=== PATIENT | female | born 1945 | race Caucasian/White ===

== ENCOUNTER 2018-01-05 10:12 | Day surgery (SDC) | payer MEDICARE ==
[2018-01-02 16:10] VITALS: BMI 33.6
--- NOTE | 2018-01-05 03:02 | HP ---
HISTORY AND PHYSICAL CHIEF COMPLAINT: Fluid in the right ear and a perforation in the left tympanic membrane. HISTORY OF PRESENT ILLNESS: This patient is a very pleasant 72-year-old female who was recently seen in my office complaining of having a plugged sensation in both ears. The history that the patient gave was that she had recently seen a physician complaining of a plugged sensation in both ears. At that time, she stated that she had an upper respiratory tract infection, however, while at the physician's office, they elected to irrigate her ears out at that time. During the process of irrigation, the patient stated that she experienced a very sharp pain in her left ear while that was being irrigated. In the past, the patient has had tubes placed in ears and was advised to avoid allowing anyone irrigate her ears with any type of solutions. At the time she presented to my office, she was complaining of both ears felt plugged. Clinical examination of the ears revealed that there was an extruded ventilation tube in the right ear with fluid in the right middle ear space and a small recent perforation in the left tympanic membrane. The left middle ear space was dry and free of any infection, fluid, or cholesteatoma. The patient was placed on a course of oral steroids, Decadron and also Floxin and otic drops for a period of approximately 2 weeks. At the time of her return visit, clinical examination revealed that the fluid was still present in the right ear and that the perforation in the left ear had not decreased in size. At that point, it was recommended that the patient undergo a right myringotomy with insertion of a ventilation tube and also at the same time insertion of a left Kartush patch to the left tympanic membrane under IV sedation with MAC. Because the patient has a history of chronic recent renal failure, we advised that we will advise anesthesia to use a use IV fluids with a very low salt content and also to make sure that the amount of IV fluids that she is given is markedly reduced. I spoke with her urology doctor and he advised that the surgery would be okay as long as the amount of fluids that she was given was limited. PAST MEDICAL HISTORY: Past medical history reveals that the patient has: ALLERGIES: TO X-RAY DYE. CURRENT MEDICATIONS: Include 1 baby aspirin daily, pravastatin, Carvedilol, Synthroid, lisinopril, and insulin. REVIEW OF SYSTEMS: Review of systems reveals cardiovascular system is positive for hypertension and ASHD, metabolic endocrine system is positive for hypercholesterolemia and type 1 diabetes mellitus, and hypothyroidism. Urological system is positive for chronic renal failure. The remainder of the review of systems is essentially unremarkable. PHYSICAL EXAMINATION: HEENT: Patient is normocephalic. Examination of right ear reveals right tympanic membrane is dull with evidence of fluid in the right middle ear space. Examination of the left ear reveals a central perforation encompassing approximately 5-10% of the left tympanic membrane. The middle ear ossicles appear to be intact and the middle ear fluid is free of any fluid or infection. Pupils equal, round, react to light and accommodation. Extraocular movements within normal limits. Intranasal examination reveals moderate septal deviation with compensatory hypertrophy of the inferior turbinates. Mild amount of mucus membranes draining down the posterior pharynx. Palpation of the neck, cranial nerves 2 through 12 and the remainder of the head and neck exam are within normal limits. Chest/cardiovascular: Both lung fraga are clear to percussion and auscultation. The patient is in regular sinus rhythm. S1 and S2 are present without evidence of any murmurs, S3s or S4. Peripheral pulses are bilateral and within normal limits. Abdomen: There is no evidence any masses megaly or tenderness. The abdomen is soft. Skin is unremarkable. Musculoskeletal/neurological are within normal limits. Pelvic/rectal examination is deferred at this time because the patient has this done on a regular basis at her family physician's office. The remainder of the physical exam is essentially unremarkable. IMPRESSION: Chronic right serous otitis media with perforation of the left tympanic membrane. PLAN: The patient is scheduled to undergo a right myringotomy with insertion of ventilation tube and insertion of a Kartush patch to the perforation of the left tympanic membrane under IV sedation with MAC. Attention RNs in the pre-surgical area, I have not ordered any pre-surgical prophylactic antibiotics for this patient. If the pharmacy department sends any pre- surgical prophylactic antibiotics to the pre-surgical area for this patient, that order should be cancelled and the medication should be returned to the pharmacy department and make sure that the patient's account is credited appropriately. I have not ordered any pre-surgical medications for this patient. I have discussed the risks, benefits and alternative therapies for the above-mentioned procedure and for both sedation/analgesia as well as necessary blood product administration, if indicated, as they pertain to this patient. The patient has indicated his or her understanding and acceptance of the risks and procedures discussed. MMODL / IJN: [id number] /
[~2018-01-05 10:12] MED LIST: LACTATED RINGERS 1,000 ML IV SCH; Pre Op ABX Message 1 EACH MISC MISCELLANE ONE
[2018-01-05 10:27] LABS: Glucose,Whole Blood 103 mg/dL (75-99)
[2018-01-05] MEDS ORDERED: SODIUM CHLORIDE 0.9% 500 ML IV ONE (10:50)
[2018-01-05] MEDS ORDERED: LIDOCAINE 1% 20 ML VIAL (10MG/ML) FOR IV START INTRADERMA ONE (11:10)
[2018-01-05] MEDS ORDERED: ONDANSETRON 4 MG/2 ML VIAL IVP ONE (11:10)
[2018-01-05] MEDS ORDERED: ePHEDrine SULFATE/0.9% NACL/PF 50 MG/5 ML SYRINGE IV ONE (11:59)
[2018-01-05] MEDS ORDERED: PROPOFOL 10 MG/ML 20 ML VIAL IV ONE (11:59)
[2018-01-05] MEDS ORDERED: fentaNYL (PF) 50 MCG/ML 2 ML AMP ONE (11:59)
[2018-01-05] MEDS ORDERED: MIDAZOLAM 2 MG/2 ML VIAL ONE (11:59)
[2018-01-05] MEDS ORDERED: OFLOXACIN 0.3% OPHTH DROPS 5 ML BOTTLE BOTH EARS ONE (12:08)
[2018-01-05] MEDS ORDERED: OFLOXACIN 0.3% OPHTH DROPS 5 ML BOTTLE RIGHT EAR ONE ×2 (12:08)
[2018-01-05 13:07] VITALS: TEMP 97
[2018-01-05 13:14] LABS: Glucose,Whole Blood 110 mg/dL (75-99)
[2018-01-05 14:09] VITALS: RESP 18
[2018-01-05 14:31] VITALS: BP 118/58; PULSE 86
--- NOTE | 2018-01-07 16:42 | OP ---
OPERATIVE REPORT DATE OF SURGERY: 01/05/2018 PREOPERATIVE DIAGNOSIS: Chronic right serous otitis media with perforation of the left tympanic membrane. POSTOPERATIVE DIAGNOSIS: Chronic right serous otitis media with perforation of the left tympanic membrane. ANESTHESIA: IV sedation with M.A.C. OPERATIVE PROCEDURE: Right myringotomy with insertion of a Overton ventilation tube and insertion of a 3 mm Kartush patch to a left tympanic membrane perforation. SURGEON: Dr. James. COMPLICATIONS: None. ESTIMATED BLOOD LOSS: Zero. OPERATIVE PROCEDURE: The patient was placed on the operating table in supine position. After uneventful induction, an IV sedation satisfactory sedation was obtained. Next the patient's right ear was draped in usual customary fashion. Next, using the Zeiss operating microscope and a #3 aural speculum, the right external auditory canal was cleansed of all wax and debris. It was noted that the right middle ear space was filled with fluid. The central most portion of the tympanic membrane appeared to have a so-called monomeric tympanic membrane, which is to say it was quite thinned out. Therefore, it was elected to make an incision in the superior anterior portion of the right tympanic membrane. Next, the right middle ear space was suctioned free of all fluid and a Overton ventilation tube was inserted through this myringotomy incision without difficulty. Attention was then directed to the left ear with a similar procedure was carried out using the Zeiss operating microscope and a #3 aural speculum to cleanse out the left external auditory canal. Initial inspection did not reveal the perforation. However, it was noted that there appeared to be a very thin layer of tissue overlying and hiding the perforation. This thin piece tissue was carefully grasped with the alligator forceps and was subsequently removed and teased off of the tympanic membrane without causing further enlargement of the perforation. The left middle ear space was free of any fluid, infection or cholesteatoma. It was elected to insert a 3 mm Kartush patch into the perforation. This size Kartush patch covered the perforation nicely and care was taken to make sure that it was well seated. At this point, the procedure was terminated. There were no intraoperative complications. Patient tolerated procedure well and was returned to the recovery room in satisfactory condition. MMODL / IJN: [id number] /
== END 2018-01-05 15:01 | disposition home or self-care (01) ==
LOC: OR 10:12
PROVIDERS: ATTEND Otolaryngology
DX: H65.21 Chronic serous otitis media, right ear (principal); H72.92 Unspecified perforation of tympanic membrane, left ear; I25.2 Old myocardial infarction; I12.9 Hypertensive chronic kidney disease with stage 1 through stage 4 chronic kidney disease, or unspecified chronic kidney disease; N18.4 Chronic kidney disease, stage 4 (severe); K21.9 Gastro-esophageal reflux disease without esophagitis; I25.10 Atherosclerotic heart disease of native coronary artery without angina pectoris; G47.33 Obstructive sleep apnea (adult) (pediatric); E07.9 Disorder of thyroid, unspecified; E11.22 Type 2 diabetes mellitus with diabetic chronic kidney disease; Z79.4 Long term (current) use of insulin; Z79.899 Other long term (current) drug therapy; Z91.041 Radiographic dye allergy status; Z79.82 Long term (current) use of aspirin
CPT/HCPCS: 84132; 69436; 69610; J2250; J2405; J3010; J2704

== ENCOUNTER → 2018-08-16 | Outpatient (CLI) | payer MEDICARE ==
--- NOTE | 2018-08-16 12:15 | XR ---
EXAMINATION TYPE: XR cervical spine limited DATE OF EXAM: 08/16/2018 COMPARISON: NONE HISTORY: Pain TECHNIQUE: Three views are submitted. FINDINGS: The odontoid is intact. There are no compression deformities. The prevertebral soft tissue structur es are within normal limits. Severe degenerative disc disease C5-C6 and C6-C7 with posterior spondyl osis. Calcifications in the soft tissues of the neck likely related atherosclerotic change of the carotid a rteries. Sternotomy wires and cardiac device also noted. IMPRESSION: 1. Severe degenerative disc disease C5-6 and C6-C7 correlate with MRI as clinically warranted. 2. Calcification soft tissue the neck likely related atherosclerotic changes of the carotid arteries. .
== END | disposition home or self-care (01) ==
LOC: RADXRMAIN 11:39
PROVIDERS: ATTEND Otolaryngology
DX: M50.322 Other cervical disc degeneration at C5-C6 level (principal); M79.89 Other specified soft tissue disorders
CPT/HCPCS: 72040

== ENCOUNTER → 2022-02-11 | Outpatient (CLI) | payer MEDICARE ==
--- NOTE | 2022-02-11 12:40 | US ---
EXAMINATION TYPE: US abdomen complete DATE OF EXAM: 02/11/2022 COMPARISON: NONE CLINICAL HISTORY: R10.12 LUQ ABD PAIN. LUQ pain no gallbladder low blood count 7.1.CKD EXAM MEASUREMENTS: Liver Length: 15.3 cm Gallbladder Wall: Surgically absent cm CBD: .7 cm Spleen: 10.7 cm Right Kidney: 9.2 x 4.0 x 3.3 cm Left Kidney: 10.0 x 4.6 x 3.4 cm Limitations due to overlying bowel gas. Pancreas: Tail obscured by overlying bowel gas. Complex area visualized 1.8 x .9 x .9cm. This is non specific. Consider cystadenoma or cystadenocarcinoma. Small pseudocysts or less likely. Liver: Increased attenuation Gallbladder: Surgically absent Evidence for sonographic Zavala's sign: No CBD: wnl Spleen: wnl Right Kidney: Cortical thinning Left Kidney: Cortical thinning Upper IVC: wnl Abd Aorta: wnl IMPRESSION: 1. Complex hypoechoic area within the head of the pancreas. Additional workup is recommended. Differe ntial diagnosis could include cystadenoma or cystadenocarcinoma among other etiologies. Consider nidia tional evaluation with contrast CT with pancreas protocol or contrast MRI. Neoplasm is not excluded t his time.
== END | disposition home or self-care (01) ==
LOC: RADUSWWP 09:31
PROVIDERS: ATTEND Internal Medicine Hematology & Oncology
DX: K86.89 Other specified diseases of pancreas (principal)
CPT/HCPCS: 76700

== ENCOUNTER 2022-07-18 14:14 | Emergency (ER) | payer MEDICARE ==
[2022-07-18 15:16] VITALS: BP 162/65; PULSE 70; RESP 18; TEMP 99.6
[2022-07-18 16:06] LABS: Basophils # (A) 0.1 k/uL (0-0.2); Basophils % (A) 1 %; Eosinophils % (A) 0 %; HGB 11.4 gm/dL (11.4-16.0); Hypochromasia Slight; Lymphocytes # (A) 0.4 k/uL (1.0-4.8); Lymphocytes % (A) 3 %; MCH 28.7 pg (25.0-35.0); MCHC 31.7 g/dL (31.0-37.0); MCV 90.7 fL (80.0-100.0); Mean Platelet Volume 8.1; Monocytes # (A) 0.6 k/uL (0-1.0); Monocytes % (A) 5 %; Neutrophils # (A) 10.3 k/uL (1.3-7.7); Neutrophils % (A) 89 %; Platelet Count 218 k/uL (150-450); RBC 3.97 m/uL (3.80-5.40); RDW 15.7 % (11.5-15.5); WBC 11.5 k/uL (3.8-10.6)
[2022-07-18 16:23] LABS: Albumin 3.7 g/dL (3.5-5.0); Calcium 9.4 mg/dL (8.4-10.2); Potassium 3.7 mmol/L (3.5-5.1); Total Bilirubin 0.8 mg/dL (0.2-1.3); Total Protein 6.5 g/dL (6.3-8.2)
[2022-07-18 16:48] LABS: Appearance,Urine Cloudy (Clear); Bacteria,Urine Many /hpf; Bilirubin,Urine Negative (Negative); Blood,Urine Negative (Negative); Color,Urine Light Yellow; Glucose,Urine (UA) Negative (Negative); Ketones,Urine Negative (Negative); Leukocyte Esterase,Urine Large (Negative); Mucus,Urine Rare /hpf; Nitrite,Urine Negative (Negative); Protein,Urine Trace (Negative); RBC,Urine 1 /hpf (0-5); Specific Gravity,Urine 1.012 (1.001-1.035); Squamous Epithelial Cell,Urine 7 /hpf (0-4); Urobilinogen,Urine <2.0 mg/dL (<2.0); WBC,Urine 82 /hpf (0-5)
== END 2022-07-18 17:18 | disposition left against medical advice (07) ==
LOC: EC 14:14
DX: Z53.21 Procedure and treatment not carried out due to patient leaving prior to being seen by health care provider (principal)
CPT/HCPCS: 36415; 80053; 81001; 82150; 83690; 85025; 87086; 93005; 99499

== ENCOUNTER 2024-11-01 10:04 | Day surgery (SDC) | payer MEDICARE ==
[2024-10-30 15:51] VITALS: BMI 37.2
--- NOTE | 2024-10-31 19:10 | HP ---
HISTORY AND PHYSICAL CHIEF COMPLAINT: Fluid in both ears. HISTORY OF PRESENT ILLNESS: This patient is a 79-year-old female, who was recently seen in my office complaining of a plugged sensation in both ears. At the time that the patient was examined, clinical examination revealed chronic bilateral serous otitis media so-called glue ear. The patient was placed on a 10-day course of dexamethasone and scheduled for return appointment. At the time of her return appointment, the patient stated that the ears were not better and clinical examination of the ears revealed that she still had chronic bilateral serous otitis media. It was therefore recommended that she undergo a bilateral myringotomy with insertion of ventilation tubes under IV sedation with MAC. PAST MEDICAL HISTORY: Reveals that the patient has allergies to x-ray dye. CURRENT MEDICATIONS: 1. Baby aspirin. 2. Pravastatin. 3. Carvedilol. 4. Synthroid. 5. Lisinopril. 6. Toujeo. 7. Insulin. 8. Farxiga. 9. Atorvastatin. 10.Isosorbide. 11.Xanax. REVIEW OF SYSTEMS: CARDIOVASCULAR: Positive for hypertension. GASTROINTESTINAL: Negative. METABOLIC/ENDOCRINE: Positive for type 1 diabetes mellitus, hypercholesterolemia, and hypothyroidism. UROLOGICAL: Positive for chronic renal failure. Remainder of the review of systems is unremarkable. PHYSICAL EXAMINATION: GENERAL: This patient is a pleasant 79-year-old female, who is alert and cooperative. HEENT: Patient is normocephalic. Both tympanic membranes are dull with fluid in both middle ear spaces. Pupils are equal, round, and reactive to light and accommodation. Extraocular movements within normal limits. Intranasal examination reveals moderate septal deviation with compensatory hypertrophy of the inferior turbinates. A moderate amount of mucus on the mucous membrane draining down posterior pharynx. Examination of oropharynx and the remainder of the head and neck exam are within normal limits. CHEST/CARDIOVASCULAR: Lung fraga are clear to percussion and auscultation. The patient is in regular sinus rhythm. S1 and S2 are present without evidence of any murmurs, S3s or S4s. Peripheral pulses are bilaterally symmetrical. ABDOMEN: There is no evidence any masses, megaly, or tenderness. The abdomen is soft. SKIN: Unremarkable. MUSCULOSKELETAL/NEUROLOGICAL: All within normal limits. PELVIC/RECTAL: This should be printed. The pelvic/rectal exam is deferred at this time because the patient has it done on a regular basis at her family physician's office. The remainder of physical exam is unremarkable. IMPRESSION: Chronic bilateral serous otitis media. PLAN: The patient is scheduled undergo a bilateral myringotomy with insertion of ventilation tubes under IV sedation with MAC in the a.m. Attention, RNs in the pre-surgical area: I have not ordered any pre-surgical prophylactic antibiotics for this patient. If the pharmacy department sends any pre- surgical prophylactic antibiotics to the pre-surgical area for this patient, that medication should be returned to the pharmacy department and the order should be cancelled. Also please make sure that the patient's account is credited appropriately. I have discussed the risks, benefits and alternative therapies for the above-mentioned procedure and for both sedation/analgesia as well as necessary blood product administration, if indicated, as they pertain to this patient. The patient has indicated his or her understanding and acceptance of the risks and procedures discussed. MMODL / IJN: [id number] /
[~2024-11-01 10:04] MED LIST changes: -LACTATED RINGERS 1,000 ML IV SCH
[2024-11-01] MEDS ORDERED: LACTATED RINGERS 1,000 ML IV SCH (10:14)
[2024-11-01 10:53] LABS: Glucose,Whole Blood 53 mg/dL (70-110)
[2024-11-01] MEDS: IV FLUID CONTINUATION 1,000 ML IV ONE (10:54)
[2024-11-01] MEDS: DEXTROSE 50% SYRINGE 50 ML IVP STA (10:55)
[2024-11-01] MEDS ORDERED: MIDAZOLAM 2 MG/2 ML VIAL ONE (11:19)
[2024-11-01] MEDS ORDERED: LIDOCAINE 1% INJ 10MG/ML (20 ML MDV) ONE (11:19)
[2024-11-01] MEDS ORDERED: fentaNYL (PF) 50 MCG/ML 2 ML AMP ONE (11:19)
[2024-11-01] MEDS ORDERED: PROPOFOL 10 MG/ML 20 ML VIAL IV ONE (11:19)
[2024-11-01] MEDS ORDERED: PHENYLEPHRINE 10 MG/ML VIAL ONE (11:19)
[2024-11-01 11:52] LABS: Glucose,Whole Blood 87 mg/dL (70-110)
[2024-11-01] MEDS: OFLOXACIN 0.3% OPHTH DROPS 5 ML BOTTLE RIGHT EAR ONE (11:53)
[2024-11-01] MEDS: OFLOXACIN 0.3% OPHTH DROPS 5 ML BOTTLE LEFT EAR ONE (12:06)
[2024-11-01 12:24] VITALS: TEMP 97
[2024-11-01 12:25] LABS: Glucose,Whole Blood 82 mg/dL (70-110)
[2024-11-01 13:09] VITALS: PULSE 70
[2024-11-01 13:31] LABS: Glucose,Whole Blood 89 mg/dL (70-110)
[2024-11-01 13:35] VITALS: BP 149/81; RESP 17
--- NOTE | 2024-11-07 19:04 | OP ---
OPERATIVE REPORT DATE OF SERVICE : 11/01/2024 PREOPERATIVE DIAGNOSIS: Chronic bilateral serous otitis media. POSTOPERATIVE DIAGNOSIS: Chronic bilateral serous otitis media. ANESTHESIA: IV sedation with MAC. OPERATIVE PROCEDURE: Bilateral myringotomy with insertion of plastic Constanza-bobbin ventilation tubes. COMPLICATIONS: None. DESCRIPTION OF PROCEDURE: The patient was placed on the Operating table in the supine position after uneventful induction and IV sedation, satisfactory general anesthesia was obtained. Next, the operating microscope was brought into position over the patient's right ear where after insertion of a #3 aural speculum, the external canal was cleansed of all wax and debris. The myringotomy knife was used to make an incision in the anterior inferior quadrant of the right tympanic membrane. The middle ear space was suctioned free of all fluid and a 1.1 mm Constanza bobbin ventilation tube was inserted without any difficulty. Attention was then directed to the left ear where the same procedure was carried out using the operating microscope, #3 aural speculum, the external auditory canal was cleansed of all wax and debris. The myringotomy knife was used to make an incision in the anterior inferior quadrant of the left tympanic membrane and the middle ear space was suctioned free of all fluid. A 1.1 mm Constanza bobbin ventilation tube was inserted without any difficulty. At this point, the procedure was terminated. There were no intraoperative complications. The patient tolerated the procedure well and was returned to the Recovery Room in satisfactory condition. MMMARIANL / IJGeovani: [id number] /
== END 2024-11-01 13:49 | disposition home or self-care (01) ==
LOC: OR 10:04
PROVIDERS: ATTEND Otolaryngology
DX: H65.23 Chronic serous otitis media, bilateral (principal); I10 Essential (primary) hypertension; E78.5 Hyperlipidemia, unspecified; I25.10 Atherosclerotic heart disease of native coronary artery without angina pectoris; I67.9 Cerebrovascular disease, unspecified; K21.9 Gastro-esophageal reflux disease without esophagitis; E07.9 Disorder of thyroid, unspecified; N28.9 Disorder of kidney and ureter, unspecified; E11.319 Type 2 diabetes mellitus with unspecified diabetic retinopathy without macular edema; G47.33 Obstructive sleep apnea (adult) (pediatric); K25.9 Gastric ulcer, unspecified as acute or chronic, without hemorrhage or perforation; M79.7 Fibromyalgia; M19.90 Unspecified osteoarthritis, unspecified site; F41.9 Anxiety disorder, unspecified; Z95.1 Presence of aortocoronary bypass graft; Z95.0 Presence of cardiac pacemaker; Z91.041 Radiographic dye allergy status; Z99.89 Dependence on other enabling machines and devices; Z79.4 Long term (current) use of insulin; Z79.02 Long term (current) use of antithrombotics/antiplatelets; Z79.890 Hormone replacement therapy; Z79.899 Other long term (current) drug therapy
CPT/HCPCS: 69436; J2250; J2003; J3010; J2704; J2371